=== PATIENT | female | born 1985 | race Caucasian/White ===

== ENCOUNTER 2021-01-23 15:24 | Emergency (ER) | payer OTHER ==
[2021-01-23 15:33] VITALS: BP 134/95; PULSE 70; TEMP 97.8; BMI 24.2
[2021-01-23] MEDS ORDERED: TETRACAINE 0.5% OPHTH SOLN 2 ML BOTTLE ONE (15:47)
[2021-01-23] MEDS ORDERED: TETRACAINE 0.5% HCL 0.6ML DROPPER.BOTTLE OD ONE (15:47)
[2021-01-23] MEDS ORDERED: FLUORESCEIN NA 1 EA STRIP OD ONE (15:47)
[2021-01-23] MEDS ORDERED: FLUORESCEIN NA 1 EA STRIP ONE (15:47)
== END 2021-01-23 17:06 | disposition home or self-care (01) ==
LOC: JERFT 15:24
DX: S05.02XA Injury of conjunctiva and corneal abrasion without foreign body, left eye, initial encounter (principal); Y99.9 Unspecified external cause status
CPT/HCPCS: 99283-25

== ENCOUNTER → 2021-07-16 | Day surgery (SDC) | payer BC | END | disposition home or self-care (01) | LOC: JRADIR 09:39 | PROVIDERS: ATTEND Obstetrics & Gynecology | PROC: BU081ZZ Plain Radiography of Uterus and Fallopian Tubes using Low Osmolar Contrast (ICD-10-PCS; principal; 2021-07-16) | DX: Z31.41 Encounter for fertility testing (principal) | CPT/HCPCS: 58340; 74740-TC-FY; 76000-TC-FY; 84703 ==

== ENCOUNTER 2023-01-24 03:35 | Inpatient (IN) | payer BC ==
[2023-01-24 04:31] VITALS: RESP 18; BMI 25.2
[2023-01-24] MEDS: ELECTROLYTE-148 SOLN 1,000 ML IV SCH ×2 (04:35→06:50)
[2023-01-24 05:28] LABS: BASO % 0.8 % (0-2.0); EOS % 0.5 % (0-4.5); HEMATOCRIT 46.5 % (32.4-45.2); HEMOGLOBIN 15.4 GM/dL (10.7-15.3); LYMPH % 20.2 % (8-40); MCH 29.7 pg (25.7-33.7); MCHC 33.1 g/dl (32.0-36.0); MEAN CELL VOLUME 89.8 fl (80-96); MEAN PLT VOLUME 10.1 fl (7.5-11.1); NEUT % 68.5 % (42.8-82.8); PLATELET COUNT 181 10^3/uL (134-434); RBC 5.18 M/mm3 (3.60-5.2); RDW 13.8 % (11.6-15.6); WHITE BLOOD COUNT 6.9 K/mm3 (4.0-10.0)
[2023-01-24 05:29] LABS: INR 0.97 (0.83-1.09); PROTHROMBIN TIME (PATIENT) 11.2 SEC (9.7-13.0)
[2023-01-24 05:31] LABS: POTASSIUM 3.9 mmol/L (3.5-5.1)
[2023-01-24 05:32] LABS: ACTIVATED PTT 28.3 SECONDS (25.2-36.5); CALCIUM 9.2 mg/dL (8.5-10.1)
[2023-01-24 05:33] LABS: BLOOD UREA NITROGEN 6.5 mg/dL (7-18)
[2023-01-24 05:36] LABS: CREATININE 0.7 mg/dL (0.55-1.3)
[2023-01-24] MEDS ORDERED: FENTANYL/BUPIVACAINE/NS/PF - PCEA - 50 ML DISP.SYRIN EP ONE ×3 (05:43→15:26)
[2023-01-24] MEDS ORDERED: FENTANYL CITRATE/PF 50 MCG/ML VIAL ONE (05:55)
[2023-01-24] MEDS ORDERED: NALOXONE HCL 0.4 MG/ML VIAL IVPUSH PRN (07:00)
[2023-01-24] MEDS ORDERED: FENTANYL/BUPIVACAINE/NS/PF - PCEA - 50 ML DISP.SYRIN EP SCH (07:00)
[2023-01-24] MEDS: FENTANYL/BUPIVACAINE/NS/PF - PCEA - 50 ML DISP.SYRIN EP SCH ×3 (08:28→15:30)
[2023-01-24] MEDS ORDERED: OXYTOCIN 30 UNITS in 0.9% NS 30 UNIT/500 ML INFUS.BAG IVPB ONE (09:27)
[2023-01-24] MEDS ORDERED: ELECTROLYTE-148 SOLN 1,000 ML IV SCH (09:45)
[2023-01-24] MEDS ORDERED: OXYTOCIN 30 UNITS in 0.9% NS 30 UNIT/500 ML INFUS.BAG IVPB SCH ×2 (09:45→10:00)
[2023-01-24] MEDS ORDERED: OXYTOCIN 20 UNITS in 0.9% NS 20 UNIT/1,000 ML INFUS.BAG IV ONE (16:14)
[2023-01-24] MEDS ORDERED: LIDOCAINE HCL 1% PRESERVATIVE FREE - 30ML VIAL ONE (16:14)
[2023-01-24] MEDS ORDERED: ACETAMINOPHEN 325 MG TABLET (FP) PO PRN (19:20)
[2023-01-24] MEDS ORDERED: BENZOCAINE 20% 57 GM BOTTLE TP PRN (19:20)
[2023-01-24] MEDS ORDERED: WITCH HAZEL 50% (TUCKS) 40 PAD/JAR PAD TP PRN (19:20)
[2023-01-24] MEDS ORDERED: BENZOCAINE 28 GM HEMORRHOIDAL OINTMENT TP PRN (19:20)
[2023-01-24] MEDS ORDERED: METHYLERGONOVINE MALEATE 0.2 MG/1 ML AMP IM PRN (19:20)
[2023-01-24] MEDS ORDERED: BISACODYL 10 MG SUPP.RECT RC PRN (19:20)
[2023-01-24] MEDS ORDERED: oxyCODONE HCL 5 MG TABLET PO PRN (19:20)
[2023-01-24] MEDS ORDERED: OXYTOCIN 20 UNITS in 0.9% NS 20 UNIT/1,000 ML INFUS.BAG IV SCH (19:30)
[2023-01-24 19:41] LABS: CORD BASE EXCESS -3.9 mmol/L (0-2); CORD HCO3 22.9 mmHg (20-29); CORD PCO2 47.4 mmHg (30-78); CORD pH 7.301 (7.14-7.44)
[2023-01-24 19:41] LABS: CORD HCO3 25.8 mmHg (20-29); CORD PCO2 75.1 mmHg (30-78); CORD pH 7.153 (7.14-7.44)
[2023-01-24] MEDS: IBUPROFEN 600 MG TABLET (FP) PO PRN (23:16)
[2023-01-25] MEDS: IBUPROFEN 600 MG TABLET (FP) PO PRN (07:00)
[2023-01-25 09:14] LABS: BASO % 0.4 % (0-2.0); EOS % 0.2 % (0-4.5); HEMATOCRIT 35.6 % (32.4-45.2); HEMOGLOBIN 11.3 GM/dL (10.7-15.3); MCH 28.8 pg (25.7-33.7); MCHC 31.9 g/dl (32.0-36.0); MEAN CELL VOLUME 90.4 fl (80-96); MEAN PLT VOLUME 10.1 fl (7.5-11.1); MONO % 10.9 % (3.8-10.2); NEUT % 78.5 % (42.8-82.8); PLATELET COUNT 168 10^3/uL (134-434); RBC 3.93 M/mm3 (3.60-5.2); RDW 13.8 % (11.6-15.6); WHITE BLOOD COUNT 17.7 K/mm3 (4.0-10.0)
[2023-01-25 09:16] VITALS: BP 104/75; PULSE 89; TEMP 98
[2023-01-25] MEDS ORDERED: PRENATAL VITAMINS W/ FOLIC ACID TABLET (FP) PO SCH (10:00)
[2023-01-25 13:26] LABS: POC NITRAZINE POS
[2023-01-25] MEDS ORDERED: SENNOSIDES/DOCUSATE COMBO (SENNA PLUS) TABLET (UD) PO PRN (22:00)
== END 2023-01-25 11:16 | disposition home or self-care (01) | DRG 807 ==
LOC: JDEL 03:35 → JLDR 04:00 → J3W 21:19
PROVIDERS: ADMIT Obstetrics & Gynecology; ATTEND Obstetrics & Gynecology
PROC: 10D07Z6 Extraction of Products of Conception, Vacuum, Via Natural or Artificial Opening (ICD-10-PCS; principal; 2023-01-24)
PROC: 0W8NXZZ Division of Female Perineum, External Approach (ICD-10-PCS; 2023-01-24)
DX: O36.8330 Maternal care for abnormalities of the fetal heart rate or rhythm, third trimester, not applicable or unspecified (principal); Z3A.39 39 weeks gestation of pregnancy; Z37.0 Single live birth
CPT/HCPCS: 36415; 36600; 80048; 82803; 83986-QW; 85025; 85610; 85730; 86780; 86850; 86900; 86901

== ENCOUNTER 2024-07-11 14:28 | Inpatient (IN) | payer OTHER ==
[2024-07-11 15:37] VITALS: BMI 25.3
[2024-07-11] MEDS: ELECTROLYTE-148 SOLN 1,000 ML IV SCH (15:50)
[2024-07-11 16:36] LABS: ABSOLUTE IMMATURE GRANULOCYTES 0.12 x10^3/uL (0.0-0.031); BASOPHILS # 0.02 x10^3/uL (0.01-0.08); EOSINOPHIL % 0.4 % (0.7-5.8); EOSINOPHILS # 0.03 x10^3/uL (0.04-0.36); HEMATOCRIT 37.9 % (34.1-44.9); HEMOGLOBIN 11.9 g/dL (11.2-15.7); MCHC 31.4 g/dl (32.2-35.5); MEAN CELL VOLUME 92.2 fl (79.4-94.8); MEAN PLT VOLUME 12.1 fl (9.4-12.3); MONOCYTE # 0.66 x10^3/uL (0.24-0.86); MONOCYTE % 8.9 % (4.7-12.5); PLATELET COUNT # 170 x10^3/uL (182-369); RDW 13.8 % (12.1-16.8)
[2024-07-11 16:44] LABS: INR 0.99 (0.83-1.09); PROTHROMBIN TIME (PATIENT) 10.9 SEC (9.7-13.0)
[2024-07-11 16:46] LABS: POTASSIUM 3.6 mmol/L (3.5-5.1)
[2024-07-11 16:49] LABS: BLOOD UREA NITROGEN 11.6 mg/dL (7-18); CALCIUM 8.8 mg/dL (8.5-10.1)
[2024-07-11 16:53] LABS: CREATININE 0.8 mg/dL (0.55-1.3)
[2024-07-11] MEDS ORDERED: OXYTOCIN 30 UNITS in 0.9% NS 30 UNIT/500 ML INFUS.BAG IVPB ONE (17:29)
[2024-07-11] MEDS ORDERED: FENTANYL/BUPIVACAINE/NS/PF - PCEA - 50 ML DISP.SYRIN EP ONE (17:29)
[2024-07-11] MEDS ORDERED: NALOXONE HCL 0.4 MG/ML VIAL IVPUSH PRN (17:44)
[2024-07-11] MEDS: FENTANYL/BUPIVACAINE/NS/PF - PCEA - 50 ML DISP.SYRIN EP SCH (17:58)
[2024-07-11] MEDS ORDERED: ELECTROLYTE-148 SOLN 1,000 ML IV SCH (18:00)
[2024-07-11] MEDS ORDERED: OXYTOCIN 20 UNITS in 0.9% NS 20 UNIT/1,000 ML INFUS.BAG IV ONE (18:05)
[2024-07-11] MEDS ORDERED: LIDOCAINE HCL 1% PRESERVATIVE FREE - 30ML VIAL ONE (18:11)
[2024-07-11] MEDS: OXYTOCIN 20 UNITS in 0.9% NS 20 UNIT/1,000 ML INFUS.BAG IV SCH (18:25)
[2024-07-11] MEDS ORDERED: oxyCODONE HCL 5 MG TABLET PO PRN (19:36)
[2024-07-11] MEDS ORDERED: BISACODYL 10 MG SUPP.RECT RC PRN (19:36)
[2024-07-11] MEDS ORDERED: BENZOCAINE 28 GM HEMORRHOIDAL OINTMENT TP PRN (19:36)
[2024-07-11] MEDS ORDERED: METHYLERGONOVINE MALEATE 0.2 MG/1 ML AMP IM PRN (19:36)
[2024-07-11 21:36] VITALS: RESP 18
[2024-07-12] MEDS: IBUPROFEN 600 MG TABLET (FP) PO PRN (00:10)
[2024-07-12] MEDS: WITCH HAZEL 50% (TUCKS) 40 PAD/JAR PAD TP PRN (06:31)
[2024-07-12 08:05] LABS: ABSOLUTE IMMATURE GRANULOCYTES 0.11 x10^3/uL (0.0-0.031); BASOPHILS # 0.04 x10^3/uL (0.01-0.08); EOSINOPHIL % 0.7 % (0.7-5.8); EOSINOPHILS # 0.08 x10^3/uL (0.04-0.36); HEMOGLOBIN 11.9 g/dL (11.2-15.7); MCHC 31.3 g/dl (32.2-35.5); MEAN CELL VOLUME 94.1 fl (79.4-94.8); MONOCYTE # 1.35 x10^3/uL (0.24-0.86); MONOCYTE % 11.5 % (4.7-12.5); PLATELET COUNT # 149 x10^3/uL (182-369); RDW 13.8 % (12.1-16.8)
[2024-07-12] MEDS: PRENATAL VITAMINS W/ FOLIC ACID TABLET (FP) PO SCH (09:59)
[2024-07-12] MEDS ORDERED: SENNOSIDES/DOCUSATE COMBO (SENNA PLUS) TABLET (UD) PO PRN (22:00)
[2024-07-13] MEDS: ACETAMINOPHEN 325 MG TABLET (FP) PO PRN (09:21)
[2024-07-13 09:35] VITALS: BP 100/70; PULSE 78; TEMP 98.2
[2024-07-13] MEDS: BENZOCAINE 20% 57 GM BOTTLE TP PRN (10:30)
== END 2024-07-13 11:15 | disposition home or self-care (01) | DRG 806 ==
LOC: JLDR 14:28 → J3W 21:14
PROVIDERS: ADMIT Obstetrics & Gynecology; ATTEND Obstetrics & Gynecology
PROC: 10E0XZZ Delivery of Products of Conception, External Approach (ICD-10-PCS; principal; 2024-07-11)
DX: O34.13 Maternal care for benign tumor of corpus uteri, third trimester (principal); D68.51 Activated protein C resistance; Z37.0 Single live birth; O99.12 Other diseases of the blood and blood-forming organs and certain disorders involving the immune mechanism complicating childbirth; Z3A.37 37 weeks gestation of pregnancy
CPT/HCPCS: 36415; 59409; 80048; 85025; 85610; 85730; 86780; 86850; 86900; 86901; 87340